=== PATIENT | female | born 1975 | race Caucasian/White ===

== ENCOUNTER 2021-08-27 13:07 | Emergency (ER) | payer MEDICAID ==
[~2021-08-27] VITALS: Ht 162.6 cm; Wt 52.0 kg
[2021-08-27] MEDS ORDERED: MORPHINE SULFATE 10 MG/ML CPJ IV NR (14:30)
[2021-08-27 14:43] LABS: BASOPHILS % 0.2 % (0.0-2.0); EOSINOPHILS % 0.1 % (0.0-5.0); HEMATOCRIT. 41.7 % (36.0-48.0); HEMOGLOBIN. 13.5 g/dL (12.0-16.0); LYMPHOCYTES % 10.3 % (20.0-50.0); MEAN CORPUSCULAR HEMOGLOBIN 29.7 pg (28.0-32.0); MEAN CORPUSCULAR VOLUME 91.6 fL (81.0-99.0); MEAN PLATELET VOLUME 7.3 fl (7.4-10.4); MONOCYTES % 4.8 % (2.0-8.0); NEUTROPHILS % 84.6 % (40.0-76.0); PLATELET 360 x1000/uL (130-400); RED BLOOD CELL COUNT 4.55 mill/uL (4.2-5.4); RED CELL DISTRIBUTION WIDTH 13.8 % (11.6-14.6)
[2021-08-27] MEDS ORDERED: KETOROLAC 15MG/ML VIAL IV ONE (14:45)
[2021-08-27 14:52] LABS: CHLORIDE 103 mEq/L (98-107)
[2021-08-27 14:53] LABS: HCG SCREEN NEGATIVE
[2021-08-27 15:17] LABS: CLARITY URINE CLOUDY (CLEAR); COLOR URINE YELLOW (YELLOW); KETONES URINE NEGATIVE (NEGATIVE); LEUKOCYTE ESTERASE URINE NEGATIVE (NEGATIVE); NITRITE URINE NEGATIVE (NEGATIVE); OCCULT BLOOD URINE 2+ (NEGATIVE); PROTEIN URINE NEGATIVE (NEGATIVE); SPECIFIC GRAVITY URINE 1.019 (1.005-1.030)
[2021-08-27 16:52] VITALS: BP 125/63
== END 2021-08-27 17:59 | disposition home or self-care (01) ==
LOC: ER 13:17
DX: K80.20 Calculus of gallbladder without cholecystitis without obstruction (principal); R51.9 Headache, unspecified
CPT/HCPCS: 36415; 70450; 76700; 80048; 80076; 81003; 81025; 83690; 84484; 84703; 85025; 96374; 99284; J1885